=== PATIENT | male | born 1960 | race Caucasian/White ===

== ENCOUNTER 2018-06-13 12:39 | Emergency (ER) | payer MEDICAID ==
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
[2018-06-13 13:30] LABS: PLATELET COUNT, AUTOMATED 273 K/uL (150-450)
--- NOTE | 2018-06-13 14:20 | RADIOLOGY IMAGING REPORT ---
FACILITY: [facility] [place] PATIENT NAME: Boni Bee : 1960 MR: [id number] V: [id number] EXAM DATE: ORDERING PHYSICIAN: TAVON VILLALOBOS TECHNOLOGIST: Location: [facility] [place] Patient: Boni Bee : 1960 Visit/Account:[id number] Date of Sevice: 06/13/2018 CT Head without contrast Indication: Hit head on concrete. Comparison: None available Technique: Axial CT images were obtained through the brain from the skull base to the vertex without administration of IV contrast. Reformatted coronal and sagittal images were also obtained. One of the following dose optimization techniques was utilized in the performance of this exam: autom ated exposure control; adjustment of the mA and/or kV according to the patient's size; or use of an i terative reconstruction technique. Specific details can be referenced in the facility's radiology CT exam operational policy. Findings: No evidence of mass, mass effect, or midline shift. No acute intracranial hemorrhage or acute territorial infarction. No extra-axial fluid collection or hydrocephalus. No abnormal density. Becerra/white matter differenti ation appears normal. Bony structures show no fractures or lesions. Focal mucosal thickening seen in the posterior left maxillary sinus which could represent a cyst/poly p. Minimal mucosal thickening seen in the posterior left sphenoid sinus. The remaining sinuses and mastoids visualized are clear. IMPRESSION: 1. No acute intracranial abnormality. No skull fracture. 2. Sinus disease. Report Dictated By: Eleuterio Pérez at 06/13/2018 2:11 PM Report E-Signed By: Eleuterio Pérez at 06/13/2018 2:15 PM WSN:[email or web address]
--- NOTE | 2018-06-13 14:27 | RADIOLOGY IMAGING REPORT ---
FACILITY: [facility] PATIENT NAME: Boni Bee : 1960 MR: [id number] V: [id number] EXAM DATE: ORDERING PHYSICIAN: TAVON VILLALOBOS TECHNOLOGIST: Location: [facility] [place] Patient: Boni Bee : 1960 Visit/Account:[id number] Date of Sevice: 06/13/2018 Exam type: SHOULDER MIN 2 VIEWS RIGHT History: hurt when put into handcuffs Comparison: None. Findings: Four views of the right shoulder demonstrates no evidence of acute fracture or dislocation. There ar e moderate degenerative changes incidentally noted at the right AC joint although no evidence of a ri ght AC joint separation IMPRESSION: 1. Moderate degenerative changes incidentally noted at the right AC joint. No evidence of acute fracture or dislocation involving the right shoulder Report Dictated By: Holly Meredith MD at 06/13/2018 2:22 PM Report E-Signed By: Holly Meredith MD at 06/13/2018 2:24 PM WSN:[email or web address]
--- NOTE | 2018-06-13 14:30 | RADIOLOGY IMAGING REPORT ---
FACILITY: [facility] - [place], [place] PATIENT NAME: Boni Bee : 1960 MR: [id number] V: [id number] EXAM DATE: ORDERING PHYSICIAN: TAVON VILLALOBOS TECHNOLOGIST: Location: [facility] Patient: Boni Bee : 1960 Visit/Account:[id number] Date of Sevice: 06/13/2018 Exam type: WRIST RIGHT MIN 3 VIEW History: hurt when put into handcuffs Comparison: None. Findings: Three views of the right wrist were submitted is a tiny relatively well marginated density projecting just distal to the ulnar styloid likely a peritendinous calcification. There is mild widening of th e scapholunate interval. Degenerative changes are noted involving the navicular trapezium articulati on and the first carpometacarpal articulation. A navicular view was not performed IMPRESSION: 1. Tiny well marginated density projects just distal to the ulnar styloid likely peritendinous calci fication. Widening of the scapholunate interval. Injury to the scapholunate ligament cannot be excluded and is of indeterminate age Degenerative changes along the radial aspect of the carpal joint Navicular series was not performed. If a navicular fracture is of clinical concern a navicular serie s is recommended Report Dictated By: Holly Meredith MD at 06/13/2018 2:24 PM Report E-Signed By: Holly Meredith MD at 06/13/2018 2:27 PM WSN:[email or web address]
[2018-06-13] MEDS ORDERED: SERT25TA87 PO (15:24)
[2018-06-13 17:14] VITALS: BP 116/67
[2018-06-14] MEDS ORDERED: SERT-181 PO (09:26)
[2018-06-14] MEDS ORDERED: BUPR-472 PO (14:11)
== END 2018-06-13 17:30 ==
LOC: ER 13:05
DX: R45.851 Suicidal ideations (principal); M25.511 Pain in right shoulder; M25.531 Pain in right wrist
CPT/HCPCS: 36415; 70450; 73030; 73110; 80305; 81001; 83735; 84443; 85025; 99284; G0480; L3908; 80320; 80329; 82040; 82247; 82310; 82374; 82435; 82565; 82947; 84075; 84132; 84155; 84295; 84450; 84460; 84520; L3763

== ENCOUNTER 2018-06-13 17:05 | Inpatient (IN) | payer MEDICAID ==
[~2018-06-13] VITALS: Ht 180.3 cm; Wt 83.5 kg
[~2018-06-13 17:05] MED LIST: SERT25TA87 PO
[2018-06-13] MEDS ORDERED: MAG HYD/AL HYD/SIMETH 30ML UDC PO PRN (17:35)
[2018-06-13 18:53] VITALS: BP 148/112
[2018-06-14 01:10] VITALS: BP 126/80
[2018-06-14] MEDS: MULTIVITAMINS TAB PO SCH (08:19)
[2018-06-14] MEDS ORDERED: INFLUENZA VIRUS VAC 0.5ML SYR IM ONLY ONE (09:00)
[2018-06-14] MEDS ORDERED: SERT-181 PO (09:26)
[2018-06-14] MEDS: buPROPion XL 150 MG TABCR PO SCH (10:12)
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
[2018-06-14] MEDS: ACETAMINOPHEN 325 MG TAB PO PRN (13:38)
[2018-06-14] MEDS ORDERED: BUPR-472 PO (14:11)
--- NOTE | 2018-06-14 14:25 | NUR ---
At approximately 1400 the patient was approached by Tess Chacon, therapist, because she was given information that the patient was tearful and crying. The patient began yelling at Tess telling her that she was "telling me that I can't leave". He continued to yell and get red in the face, and demanded that Tess leave him alone. He then came out to the desk and demanded to leave. Khadar Jay RN, spoke to patient in his room about options for [facility] to get him transportation back to [place], or for a hotel room for the night. She also offered for us to try to get him a ride to his truck, to which he replied he doesn't know where it is. Homeless shelters were offered and he says he'd "rather go to [facility]". The patient refused all alternative options. Asked to be left alone.
[2018-06-14] MEDS ORDERED: LORazepam 1 MG TAB PO ONE (14:40)
[2018-06-14] MEDS ORDERED: LORazepam 1 MG TAB PO PRN (16:05)
[2018-06-15] MEDS: buPROPion XL 150 MG TABCR PO SCH (08:12)
[2018-06-15] MEDS: ACETAMINOPHEN 325 MG TAB PO PRN ×2 (08:13→14:07)
[2018-06-15] MEDS: MULTIVITAMINS TAB PO SCH (08:13)
[2018-06-15 08:40] VITALS: BP 122/90
--- NOTE | 2018-06-15 09:46 | BHS Progress Note ---
[facility] - Subjective Progress Notes Subjective "I'd be better if I could get a ride to my truck." Suicidal Ideation: None Homicidal Ideation: None S - Objective Physical Exam Vital Signs Vital Signs 06/14/18 01:10 Temp 98.0 Pulse 72 Resp 14 B/P (MAP) 126/80 (95) Pulse Ox 91 O2 Delivery Room Air Muscle Strength and Tone: WNL Gait and Station: Steady [facility] Medications Reviewed: Side Effects, Benefits of Medication, Risks Allergies Reviewed: Yes Mental Status Exam General Appearance: Casual, Well Groomed, Good Eye Contact, Cooperative, Tearful Speech: Clear, Spontaneous, Normal Rate, Normal Rhythm, Normal Volume, Normal Tone Mood: Dysthmic/Depressed Affect: Agitated (when speaks of events which occurred with the police. Not toward staff) Thought Process: Organized, Logical, Goal Directed; No Loose Associations, No Flight of Ideas Thought Content: No Homicidal Ideation, No Delusions, No Auditory Halllucinations, No Visual Hallucinations, No Thought Broadcasting, No Ideas of Reference, No Obsessions, No Compulsions Sensorium: Clear Cognition: Alert & Oriented-Person, Alert & Oriented-Place, Alert & Oriented- Time, Osduw-Dxfzvlag-Ypdrhvgrx Memory: Immediate, Recent, Remote Intelligence: Average Insight Judgment: Fair [facility] Assessment and Plan [id number] Encounter Date: Jun 15, 2018 [id number] Encounter Time: 09:00 [facility] Plan: Admit to Unit, Necessary Precautions, Individual/Group Therapy, Admin/Titrate Meds, Educate Patient Tobacco Medications: No Bupropion (Wellbutrin), No Varenicline (Chantix), No Started, No Refused, No Not Appropriate Condition, No Contrainidicated Multpiple Antipsychotics Used: No Problems: (1) Adjustment disorder with depressed mood Status: Acute PONCHO BROWN NP Jun 15, 2018 09:46
[2018-06-15] MEDS ORDERED: NICOTINE POLACRILEX 4 MG LOZG PO PRN (11:20)
[2018-06-16 06:05] VITALS: BP 115/79
[2018-06-16] MEDS: buPROPion XL 150 MG TABCR PO SCH (08:14)
[2018-06-16] MEDS: MULTIVITAMINS TAB PO SCH (08:14)
[2018-06-16 10:25] VITALS: BP 132/90
[2018-06-16] MEDS ORDERED: NICO4LOZ35 BC (12:02)
--- NOTE | 2018-06-17 04:33 | DISCHARGE SUMMARY ---
DATE OF ADMISSION: June 13, 2018 DATE OF DISCHARGE: June 16, 2018 Patient is evaluated for discharge on the morning of June 16, 2018. ATTENDING PRACTITIONER Marianna Fernandes, Psychiatric Nurse Practitioner FINAL DIAGNOSES 1. Adjustment disorder with depressed mood. 2. Partner-relational problem. REASON FOR ADMISSION This is a 58-year-old (although ) male admitted to the unit following a report of suicidal ideation without plan or attempt. PHYSICAL EXAMINATION Please see emergency room note for complete review of systems. Vital signs on the day of discharge are stable. Temperature 98.7, pulse 74, respirations 16, blood pressure 132/90. LABORATORY DATA Completed in the emergency room: White count was high at 12.6. Total bilirubin was high at 1.8, AST at 43, ALT at 58. TSH within normal limits at 1.92. Toxicology screen was positive for cannabis and benzodiazepines. Urinalysis showed ketones high at 20. MENTAL STATUS EXAMINATION GENERAL APPEARANCE, BEHAVIOR AND ATTITUDE: Patient is pleasant and cooperative this morning. He is denying depression. SPEECH: Clear, spontaneous, and of normal rate, rhythm, and volume. MOOD: Described as "I feel really happy today." AFFECT: Rangeful and appropriate. THOUGHT PROCESSES: Overall logical and goal-directed. No loose associations or flight of ideas. THOUGHT CONTENT: Patient denies any suicidal ideation. He denies homicidal ideation. He is free of any auditory, visual, or other hallucinations. Denies ideas of reference, thought broadcasting, delusions, obsessions or compulsions. SENSORIUM: Clear. COGNITION: He is alert and oriented to person, place, time, and situation. MEMORY: Immediate, recent, and remote estimated grossly intact. INTELLIGENCE: Average, based upon interview. INSIGHT AND JUDGMENT: Appropriate. He acknowledges that he has psychosocial stressors and is reporting plan to continue outpatient treatment. TREATMENT Patient's medications were changed from sertraline to Wellbutrin during his stay. He had no problems with this. He did participate in individual and group therapy and education. HOSPITAL COURSE He was overall cooperative during his stay. As mentioned, his medication was changed to Wellbutrin XL with reported good response. CONDITION OF PATIENT ON DISCHARGE Considered stable and a minimal risk to himself and others, appropriate for outpatient management. DISPOSITION Patient was discharged to home. He is to follow up with [facility] in [place], [place], for outpatient medications and therapy as scheduled. He should follow up with his primary care provider for any health concerns. Patient was discharged on the following medications: Wellbutrin XL 150 mg daily. The 24-hour crisis line number was provided should symptoms or problems return. The risks, benefits, and alternatives of the above discharge plan were discussed with client. Informed consent was given to proceed with the above discharge plan by this competent patient. [place]
== END 2018-06-16 12:15 | disposition home or self-care (01) | DRG 881 ==
LOC: BHS 17:05
PROVIDERS: ADMIT Psychiatry & Neurology Psychiatry; ATTEND Psychiatry & Neurology Psychiatry
DX: F43.21 Adjustment disorder with depressed mood (principal); R45.851 Suicidal ideations; R45.84 Anhedonia; H91.93 Unspecified hearing loss, bilateral; F15.11 Other stimulant abuse, in remission; F14.11 Cocaine abuse, in remission; F11.11 Opioid abuse, in remission; Z63.0 Problems in relationship with spouse or partner; Z56.0 Unemployment, unspecified; Z81.1 Family history of alcohol abuse and dependence; Z81.8 Family history of other mental and behavioral disorders; Z72.89 Other problems related to lifestyle; Z23 Encounter for immunization; Z86.59 Personal history of other mental and behavioral disorders
CPT/HCPCS: 90471; 90674